=== PATIENT | female | born 1955 | race Caucasian/White ===

== ENCOUNTER 2018-08-12 08:54 | Day surgery (SDC) | payer OTHER ==
[~2018-08-12 08:54] MED LIST: FENTANYL CITR 100 MCG/2 ML ONE; LIDOCAINE 2% MPF 5 ML VIAL ONE; MIDAZOLAM HCL 2 MG/2 ML INJ ONE; ONDANSETRON 4 MG/2 ML VIAL ONE; PROPOFOL 200 MG/20 ML VIAL IV ONE
--- OUTSIDE RECORDS SUMMARY | 2018-08-12 08:56 | XMS REPORT | Clinical Summary ---
:1955 Author Organization [facility] Address [address] [place] [id number] Care Team Providers Name Role Phone Asked, No Pcp Primary Care Provider Unavailable Allergies No Known Allergies Medications Medication Sig Dispensed Refills Start Date End Date Status FLUoxetine (PROzac) 40 Take 40 mg by 0 Active MG capsule mouth daily. aspirin 325 MG tablet Take 325 mg by 0 Active mouth daily. fluorometholone (FML) Administer 1 drop 0 Active 0.1 % ophthalmic into the left eye suspension daily. sodium chloride (HECTOR Administer 1 drop 0 Active 128) 5 % ophthalmic to the right eye solution daily. HYDROcodone-acetaminoph Take 1 tablet by 0 Active en (NORCO) 7.5-325 mg mouth 2 (two) per tablet times a day. metoprolol tartrate Take 12.5 mg by 0 Active (LOPRESSOR) 25 mg mouth 2 (two) tablet times a day. atorvastatin (LIPITOR) Take 40 mg by 0 Active 40 MG tablet mouth daily. lidocaine (LIDODERM) 5 Place 1 patch on 0 Active % the skin daily. Remove & Discard patch within 12 hours or as directed by gabapentin (NEURONTIN) Take 100 mg by 0 Active 100 mg capsule mouth nightly. cholecalciferol, Take 1,000 Units 0 Active vitamin D3, (VITAMIN by mouth daily. D3) 1,000 unit tablet ginkgo biloba 120 mg Take 1 tablet by 0 Active tablet mouth daily. Active Problems Problem Noted Date Chest pain 05/11/2017 Encounters Date Type Specialty Care Team Description 12/23/2017 Transcribe Orders Physical Therapy JOSEPH Mesa (stress urinary incontinence, female) (Primary Dx); MD Lizeth Orgasmic dysfunction after 08/11/2017 Social History Tobacco Use Types Packs/Day Years Used Date Never Smoker Smokeless Tobacco: Never Used Alcohol Use Drinks/Week oz/Week Comments No Sex Assigned at Date Recorded Not on file Job Start Date Occupation Industry Not on file Not on file Not on file Travel History Travel Start Travel End No recent travel history available. Last Filed Vital Signs Not on file Plan of Treatment Health Maintenance Due Date Last Done Comments BREAST CANCER SCREENING 07/10/2005 COLON CANCER SCREENING 07/10/2005 SHINGLES VACCINES (#1) 07/10/2005 INFLUENZA VACCINE 10/08/2018 Results Not on fileafter 08/11/2017 Insurance Payer Benefit Plan / Subscriber ID Effective Dates Phone Address Type Group MEDICARE MEDICARE PART A xxxxxxxxxx 2013-Present [place], [place] Medicare AND B (Home) [place] [address] Advance Directives Patient has advance care planning documents on file. For more information, please contact:Fransico Foley[address] [place] [phone]
[2018-08-12 09:14] LABS: Absolute Lymphocytes (CBC) 2.1 K/uL (0.7-4.9); Absolute Monocytes 0.5 K/uL (0.1-1.3); Absolute Neutrophil 2.5 K/uL (1.8-8.0); Basophils % 0.8 % (0-1.3); Hematocrit 36.7 % (36.0-45.0); Lymphocytes % 39.6 % (15.3-44.8); Monocytes % 8.7 % (3.3-12.3); RBC Red Blood Cell Count 4.11 M/uL (3.86-4.86)
[2018-08-12] MEDS ORDERED: Ringers Lactate 1,000 ML IV ONE (09:17)
[2018-08-12] MEDS ORDERED: LIDOCAINE 2% MPF 5 ML VIAL ONE (09:21)
[2018-08-12] MEDS ORDERED: PROPOFOL 200 MG/20 ML VIAL IV ONE (09:21)
[2018-08-12] MEDS ORDERED: FENTANYL CITR 100 MCG/2 ML ONE (09:21)
[2018-08-12] MEDS ORDERED: MIDAZOLAM HCL 2 MG/2 ML INJ ONE (09:21)
[2018-08-12] MEDS ORDERED: CIPROFLOXACIN 400mg IV 400 MG/200 ML BAG IV ONE (09:43)
--- NOTE | 2018-08-12 09:47 | RAD REPORT ---
EXAM DESCRIPTION: RAD - Chest Pa And Lat (2 Views) - 08/12/2018 8:50 am CLINICAL HISTORY: preop Chest pain. COMPARISON: Chest Pa And Lat (2 Views) dated 01/27/2017 FINDINGS: Mild interstitial pulmonary edema seen. The heart is moderately enlarged in size. No displ aced fractures. IMPRESSION: Mild CHF.
[2018-08-12] MEDS ORDERED: GLYCOPYRROLATE 0.2 MG/ML SYR ONE (10:19)
--- NOTE | 2018-08-12 10:21 | P.BOP ---
Preoperative diagnosis: tender midback, abd wall subQ mass Postoperative diagnosis: same Primary procedure: 1. Excisional biopsy of tender midback subQ mass 5x3cm Secondary procedure: 2. Excisional biopsy of tender abd wall subQ mass 3x3cm Specimen: masses x 2 Anesthesia: General Transferred to: Recovery Room Condition: Good
[2018-08-12] MEDS ORDERED: KETOROLAC 30 MG/ML INJ ONE (10:23)
--- NOTE | 2018-08-12 11:23 | EKG ---
Test Date: 2018-08-12 Test Time: 08:40:51 Delinquency Prevention Social Worker: SABINA MEASUREMENT RESULTS: Intervals: Rate: 58 KS: 184 QRSD: 106 QT: 444 QTc: 435 Shiner: P: 49 KS: 184 QRS: 53 T: 37 INTERPRETIVE STATEMENTS: Sinus bradycardia Otherwise normal ECG Compared to ECG 09/20/2004 03:18:00 No significant changes Electronically Signed On 08-12-18 11:22:45 CDT by Rajesh Stanley
--- NOTE | 2018-08-13 04:02 | OP ---
Date of Procedure: 08/12/2018 Surgeon: Bright Dave MD Preoperative Diagnoses: Tender mid back and abdominal wall subcutaneous masses. Postoperative Diagnoses: Tender mid back and abdominal wall subcutaneous masses. Procedures: 1.Excisional biopsy of tender mid back subcutaneous mass, 5 x 3 cm. 2.Excisional biopsy of tender abdominal wall subcutaneous mass, 3 x 3 cm. Specimens: Two masses. Anesthesia: General plus local. Indication: This is the case of a female who comes to us with 2 areas of tenderness, 2 of them happe n to have a mass in their region. The benefits, alternatives, and risks of excision were fully expla ined which include but are not limited to infection, bleeding, damage to adjacent structures, anesthe cody complication, recurrence, SD, and even . She also understands this may not relieve the symp toms. She might need more than one surgical intervention. She understood, signed the consent. The areas of concern were marked by me on the patient in the holding room. Description Of Procedure: The patient was brought to the operating room, placed in supine position. Anesthesia was done without complication. Then, the patient was placed in lateral decubitus positio n with proper protection. The back and the abdominal area were prepped and draped in sterile fashion . We proceeded to go to the abdomen first. The area received an incision, the incision was carried down to deep subcutaneous tissue. The mass was found, and with the help of blunt dissection, we were able to dissect this mass from the rest of the subcutaneous tissue, removed the mass, obtained hemos tasis, and then this was closed in layers. Deep layers of 3-0 chromic, and then more superficial lay ers subcu 3-0 chromic with Steri-Strip on top. Sponge counts and instrument counts were correct. At that moment, we went to the mid back area. The area was re-prepped and draped so we made an incisio n over the area. Incision was carried down to deep subcutaneous tissue. We found the lump in that r egion. The mass was removed with the help of blunt dissection. The area was irrigated. Hemostasis obtained. This was closed once again in layers with 3-0 chromic and a Steri-Strip on top. Sponge co unt and instrument counts were correct. Local anesthesia was applied before closure. Hemostasis was obtained before closure. The patient was sent to recovery in stable condition. HM/MODL Voice ID: [id number] Report ID: [id number]
--- NOTE | 2018-08-13 04:02 | DS ---
Date of Discharge: 08/12/2018 Diagnoses: Mid back and abdominal wall subcutaneous masses. Procedure: Excisional biopsy of mid back and abdominal wall subcutaneous masses. Disposition: Home. Activity: As tolerated. . No heavy lifting. Followup: Follow up in my office 1 week. Call for appointment [phone]. Keep area dry for 48 hours , then may shower. Keep Steri-Strips intact. Medications: See orders. ALTAF/YAMLI Voice ID: [id number] Report ID: [id number]
== END 2018-08-12 12:25 | disposition home or self-care (01) ==
LOC: OR 08:54
PROVIDERS: ATTEND Surgery
PROC: 0JB80ZZ Excision of Abdomen Subcutaneous Tissue and Fascia, Open Approach (ICD-10-PCS; principal; 2018-08-12 09:00)
PROC: 0JB70ZZ Excision of Back Subcutaneous Tissue and Fascia, Open Approach (ICD-10-PCS; 2018-08-12 09:00)
DX: D17.1 Benign lipomatous neoplasm of skin and subcutaneous tissue of trunk (principal)
CPT/HCPCS: 11403; 11406; 12034; 93005; 85025; 80048; 36415; 88304; 71046; J2704; J2250; J3010; J0744; 88305; J2405

== ENCOUNTER 2019-03-29 18:41 | Emergency (ER) | payer OTHER ==
--- OUTSIDE RECORDS SUMMARY | 2019-03-29 18:44 | XMS REPORT ---
:1955 [facility] Address [address] [place] [address] Dr. Bonds. [address] [place] [address] Care Team Providers Name Role Phone Unavailable Unavailable Unavailable Problems This patient has no known problems. Allergies, Adverse Reactions, Alerts This patient has no known allergies or adverse reactions. Medications This patient has no known medications.
--- NOTE | 2019-03-29 19:39 | RAD REPORT ---
EXAM DESCRIPTION: RAD - Wrist Right 3 View - 03/29/2019 7:31 pm CLINICAL HISTORY: Right wrist pain status post injury FINDINGS: Intraarticular mildly to moderately displaced fracture involves the distal radius. No dislocation
--- NOTE | 2019-03-29 19:40 | RAD REPORT ---
EXAM DESCRIPTION: RAD - Hand Right 3 View - 03/29/2019 7:30 pm CLINICAL HISTORY: Right hand pain status post injury FINDINGS: Intraarticular mildly to moderately displaced fracture involves the distal radius. No dislocation
--- NOTE | 2019-03-29 20:00 | EDPHYS ---
[facility] Name: Ashley Rivera Age: 63 yrs Sex: Female : 1955 Arrival Date: 03/29/2019 Time: 18:44 Bed 24 Private MD: ED Physician Neema Erazo HPI: 03/29 19:08 This 63 yrs old Female presents to ER via Ambulatory with complaints of Fall ma2 Injury, Arm Injury. 19:08 Details of fall: The patient fell from a supine position. Onset: The symptoms/episode ma2 began/occurred suddenly, 1 day(s) ago. Associated injuries: The patient sustained right arm, decreased range of motion. Severity of symptoms: At their worst the symptoms were moderate, in the emergency department the symptoms are unchanged. The patient has not experienced similar symptoms in the past. Historical: - Allergies: 18:52 No Known Allergies; mg2 - Home Meds: 18:52 Aspirin Oral [Active]; cholesterol med [Active]; mg2 - PMHx: 18:52 GERD; Hyperlipidemia; mg2 - PSHx: 18:52 back sx; mg2 - Immunization history: Last tetanus immunization: unknown. - Social history:: Patient/guardian denies using alcohol, street drugs, The patient lives with family, Smoking status: Patient/guardian denies using alcohol, street drugs, tobacco products. - Family history:: not pertinent. - Ebola Screening: : No symptoms or risks identified at this time. ROS: 19:08 Constitutional: Negative for fever, chills, and weight loss. ma2 19:08 All other systems are negative. Exam: 19:08 Constitutional: This is a well developed, well nourished patient who is awake, alert, ma2 and in no acute distress. Chest/axilla: Normal chest wall appearance and motion. Nontender with no deformity. No lesions are appreciated. Cardiovascular: Regular rate and rhythm with a normal S1 and S2. No gallops, murmurs, or rubs. Normal PMI, no JVD. No pulse deficits. Respiratory: Lungs have equal breath sounds bilaterally, clear to auscultation and percussion. No rales, rhonchi or wheezes noted. No increased work of breathing, no retractions or nasal flaring. Abdomen/GI: Soft, non-tender, with normal bowel sounds. No distension or tympany. No guarding or rebound. No evidence of tenderness throughout. Skin: Warm, dry with normal turgor. Normal color with no rashes, no lesions, and no evidence of cellulitis. MS/ Extremity: right hand pain and wrist ttp, mild swelling, otherwise Pulses equal, no cyanosis. Neurovascular intact. Full, normal range of motion. Neuro: Awake and alert, GCS 15, oriented to person, place, time, and situation. Cranial nerves II-XII grossly intact. Motor strength 5/5 in all extremities. Sensory grossly intact. Cerebellar exam normal. Normal gait. Vital Signs: 18:52 BP 129 / 64; Pulse 67; Resp 18; Temp 98.3; Pulse Ox 100% on R/A; Weight 97.52 kg; mg2 Height 5 ft. 7 in. (170.18 cm); 19:07 BP 142 / 68; Pulse 88; Resp 18; Temp 98.2; Pulse Ox 100% ; Pain 8/10; jv1 20:23 BP 124 / 84; Pulse 65; Resp 18; Temp 98.3; Pulse Ox 98% on R/A; Pain 0/10; jv1 18:52 Body Mass Index 33.67 (97.52 kg, 170.18 cm) mg2 Nenana Coma Score: 18:52 Eye Response: spontaneous(4). Verbal Response: oriented(5). Motor Response: obeys mg2 commands(6). Total: 15. Trauma Score (Adult): 18:52 Eye Response: spontaneous(1); Verbal Response: oriented(1); Motor Response: obeys mg2 commands(2); Systolic BP: > 89 mm Hg(4); Respiratory Rate: 10 to 29 per min(4); Nenana Score: 15; Trauma Score: 12 Procedures: 20:44 Splinting: Splint applied to right arm using sling, applied by myself. nurse. post ma2 reduction film - Examined by me, post splint application: neurovascular intact, 2+ distal pulses palpable, brisk capillary refill noted, Patient tolerated well. MDM: 19:02 Patient medically screened. ma2 19:08 Differential diagnosis: contusion, fracture, sprain, strain. Data reviewed: vital ma2 signs, nurses notes. Counseling: I had a detailed discussion with the patient and/or guardian regarding: the historical points, exam findings, and any diagnostic results supporting the discharge/admit diagnosis, the presence of at least one elevated blood pressure reading (>120/80) during this emergency department visit, the need for outpatient follow up. Response to treatment: the patient's symptoms have markedly improved after treatment. 03/29 19:05 Order name: Hand Right 3 View XRAY; Complete Time: 19:58 ma2 03/29 19:05 Order name: Wrist Right 3 View XRAY; Complete Time: 19:58 ma2 03/29 19:59 Order name: Splint: sugar tongue; Complete Time: 20:33 ma2 03/29 19:59 Order name: Sling; Complete Time: 20:33 ma2 Administered Medications: No medications were administered Disposition: 03/29/19 19:59 Discharged to Home. Impression: Colles' fracture of right radius. - Condition is Stable. - Discharge Instructions: Colles Fracture. - Prescriptions for Tylenol- Codeine #3 300-30 mg Oral Tablet - take 2 tablet by ORAL route every 6 hours As needed; 30 tablet. - Work release form, Medication Reconciliation Form, Thank You Letter, Antibiotic Education, Prescription Opioid Use form. - Follow up: Armen Dubois MD; When: Tomorrow; Reason: Continuance of care. Signatures: Dispatcher [employer] EDMS Neema Erazo MD MD ma2 Jaime May, RN RN mg2 Evelyn Montana RN RN jv1 Corrections: (The following items were deleted from the chart) 20:52 19:59 03/29/2019 19:59 Discharged to Home. Impression: Colles' fracture of right jv1 radius. Condition is Stable. Forms are Medication Reconciliation Form, Thank You Letter, Antibiotic Education, Prescription Opioid Use. Follow up: Dr. Armen Dubois; When: Tomorrow; Reason: Continuance of care. ma2
--- NOTE | 2019-03-29 20:00 | ER ---
Nurse's Notes [facility] Name: Ashley Rivera Age: 63 yrs Sex: Female : 1955 Arrival Date: 03/29/2019 Time: 18:44 Bed 24 Private MD: Diagnosis: Colles' fracture of right radius Presentation: 03/29 18:48 Presenting complaint: Patient states: i was walking in a driveway holding a box when i mg2 fell landed on my right side. Care prior to arrival: None. Mechanism of Injury: Fall from standing position. Trauma event details: Injury occurred in the [facility], Injury occurred at: 18:00. 18:48 Acuity: ROLANDA 4 mg2 18:48 Method Of Arrival: Ambulatory mg2 19:10 Transition of care: patient was not received from another setting of care. Onset of jv1 symptoms was March 29, 2019. Risk Assessment: Do you want to hurt yourself or someone else? Patient reports no desire to harm self or others. Initial Sepsis Screen: Does the patient meet any 2 criteria? No. Patient's initial sepsis screen is negative. Does the patient have a suspected source of infection? No. Patient's initial sepsis screen is negative. Trauma Activation: Not Applicable Physician: ED Physician; Name: ; Notified At: ; Arrived At: Physician: General Surgeon; Name: ; Notified At: ; Arrived At: Physician: Radiology; Name: ; Notified At: ; Arrived At: Physician: Respiratory; Name: ; Notified At: ; Arrived At: Physician: Lab; Name: ; Notified At: ; Arrived At: Historical: - Allergies: 18:52 No Known Allergies; mg2 - Home Meds: 18:52 Aspirin Oral [Active]; cholesterol med [Active]; mg2 - PMHx: 18:52 GERD; Hyperlipidemia; mg2 - PSHx: 18:52 back sx; mg2 - Immunization history: Last tetanus immunization: unknown. - Social history:: Patient/guardian denies using alcohol, street drugs, The patient lives with family, Smoking status: Patient/guardian denies using alcohol, street drugs, tobacco products. - Family history:: not pertinent. - Ebola Screening: : No symptoms or risks identified at this time. Screenin:07 Abuse screen: Denies threats or abuse. Nutritional screening: No deficits noted. jv1 Tuberculosis screening: No symptoms or risk factors identified. Fall Risk Fall in past 12 months (25 points). Primary Survey: 19:08 NO uncontrolled hemorrhage observed. A: Airway: patent. Breathing/Chest: Respiratory jv1 pattern: regular. Circulation: Cardiac rhythm: sinus rhythm. Disability Alert. 19:54 Exposure/Environment: There is no evidence of uncontrolled external bleeding. Obvious jv1 injury(ies) are noted at this time: right hand. Reassessment Breathing/Chest Respiratory pattern Regular Respiratory effort Spontaneous Unlabored Breath sounds Clear Chest inspection Symmetrical. Assessment: 18:53 General: Appears in no apparent distress. comfortable, Behavior is calm, cooperative. mg2 19:13 General: Appears in no apparent distress. uncomfortable, well groomed. Pain:. jv1 19:47 General: Appears in no apparent distress. comfortable, Behavior is calm, cooperative. jv1 Pain: Complains of pain in right arm Pain does not radiate. Pain currently is 8 out of 10 on a pain scale. Quality of pain is described as aching. Neuro: Level of Consciousness is awake, alert, obeys commands, Oriented to person, place, time, situation, Clerical Proofreader are weak on right Moves all extremities. Cardiovascular: Denies chest pain. Respiratory: Airway is patent Respiratory effort is even, unlabored, Respiratory pattern is regular, symmetrical, Breath sounds are clear bilaterally. GI: Abdomen is round non-distended, Bowel sounds present X 4 quads. : No signs and/or symptoms were reported regarding the genitourinary system. EENT: No signs and/or symptoms were reported regarding the EENT system. Derm: Skin is intact, is healthy with good turgor. Musculoskeletal: Capillary refill < 3 seconds, Range of motion: limited in right arm. Injury Description: fall. 20:05 Reassessment: for discharge after splinting. jv1 20:24 Reassessment: Patient appears in no apparent distress at this time. No changes from jv1 previously documented assessment. Patient and/or family updated on plan of care and expected duration. Pain level reassessed. Patient is alert, oriented x 3, equal unlabored respirations, skin warm/dry/pink. Vital Signs: 18:52 BP 129 / 64; Pulse 67; Resp 18; Temp 98.3; Pulse Ox 100% on R/A; Weight 97.52 kg; mg2 Height 5 ft. 7 in. (170.18 cm); 19:07 BP 142 / 68; Pulse 88; Resp 18; Temp 98.2; Pulse Ox 100% ; Pain 8/10; jv1 20:23 BP 124 / 84; Pulse 65; Resp 18; Temp 98.3; Pulse Ox 98% on R/A; Pain 0/10; jv1 18:52 Body Mass Index 33.67 (97.52 kg, 170.18 cm) mg2 Friendship Coma Score: 18:52 Eye Response: spontaneous(4). Verbal Response: oriented(5). Motor Response: obeys mg2 commands(6). Total: 15. Trauma Score (Adult): 18:52 Eye Response: spontaneous(1); Verbal Response: oriented(1); Motor Response: obeys mg2 commands(2); Systolic BP: > 89 mm Hg(4); Respiratory Rate: 10 to 29 per min(4); Friendship Score: 15; Trauma Score: 12 ED Course: 18:44 Patient arrived in ED. ag5 18:49 Triage completed. mg2 18:53 Patient has correct armband on for positive identification. mg2 18:55 Felicia Colin, VANESSA is Primary Nurse. ls4 19:02 Neema Erazo MD is Attending Physician. ma2 19:29 Hand Right 3 View XRAY In Process Unspecified. EDMS 19:29 Wrist Right 3 View XRAY In Process Unspecified. EDMS 19:55 Arm band placed on left wrist. Patient placed in an exam room, Patient notified of wait jv1 time Patient's private physician notified. 19:56 Patient maintains SpO2 saturation greater than 95% on room air. Thermoregulation: warm jv1 blanket given to patient. 19:59 Armen Dubois MD is Referral Physician. ma2 20:32 Ben wrap to right elbow and right wrist Orthoglass splint: Sugar tong splint applied on jp3 right arm. Sling applied to right arm. 20:49 No provider procedures requiring assistance completed. Patient did not have IV access jv1 during this emergency room visit. Administered Medications: No medications were administered Intake: 20:51 PO: 0ml; IV: 0ml; Tubes: 0ml (); Total: 0ml. jv1 Output: 20:51 Urine: 0ml; Total: 0ml. jv1 Outcome: 19:59 Discharge ordered by . [email or web address] 20:50 Discharged to home ambulatory, with friend, with splint and sling to right arm jv1 20:50 Condition: stable 20:50 Discharge instructions given to patient, friend, Instructed on discharge instructions, follow up and referral plans. medication usage, care for splint Demonstrated understanding of instructions, follow-up care, medications, splint care, Prescriptions given X 1. 20:51 Patient's length of stay was not longer than 2 hours. jv1 20:52 Patient left the ED. jv1 Signatures: Dispatcher [employer] EDMS Neema Erazo MD MD ma2 Jaime May, RN RN mg2 Andrea Chapa jp3 Evelyn Montana RN RN jv1 Felicia Colin RN RN ls4 Mandi Flores 5
[2019-03-29 23:56] VITALS: BP 124/84; TEMP 98.3; O2SAT 98
== END 2019-03-29 20:52 | disposition home or self-care (01) ==
LOC: ER 18:41
PROC: 2W3CX1Z Immobilization of Right Lower Arm using Splint (ICD-10-PCS; principal; 2019-03-29)
DX: S52.531A Colles' fracture of right radius, initial encounter for closed fracture (principal); W19.XXXA Unspecified fall, initial encounter; Y93.9 Activity, unspecified; Y92.9 Unspecified place or not applicable; Z79.82 Long term (current) use of aspirin; E78.5 Hyperlipidemia, unspecified; K21.9 Gastro-esophageal reflux disease without esophagitis
CPT/HCPCS: 99284

== ENCOUNTER 2019-03-30 00:27 | Emergency (ER) | payer OTHER ==
--- OUTSIDE RECORDS SUMMARY | 2019-03-30 00:30 | XMS REPORT ---
:1955 Author Organization [facility] Address [address] [place] [address] Dr. Bonds. [address] [place] [address] Care Team Providers Name Role Phone Unavailable Unavailable Unavailable Problems This patient has no known problems. Allergies, Adverse Reactions, Alerts This patient has no known allergies or adverse reactions. Medications This patient has no known medications.
--- NOTE | 2019-03-30 01:00 | ER ---
Nurse's Notes [facility] Name: Ashley Rivera Age: 63 yrs Sex: Female : 1955 Arrival Date: 03/30/2019 Time: 00:31 Bed 15 Private MD: Roberto Law E Diagnosis: ENCOUNTER FOR ADJUSTMENT OF SPLINT Presentation: 03/30 00:55 Presenting complaint: Patient states: Pt was just discharged this evening after Orthoglass splint placement. Pt came back because cast is itchy and she feels pain in the arm. Transition of care: patient was not received from another setting of care. Onset of symptoms was March 30, 2019. Risk Assessment: Do you want to hurt yourself or someone else? Patient reports no desire to harm self or others. Initial Sepsis Screen: Does the patient meet any 2 criteria? No. Patient's initial sepsis screen is negative. Does the patient have a suspected source of infection? No. Patient's initial sepsis screen is negative. Care prior to arrival: None. 00:55 Method Of Arrival: Ambulatory 00:55 Acuity: ROLANDA 4 Historical: - Allergies: 00:58 No Known Allergies; - Home Meds: 00:58 Aspirin Oral [Active]; cholesterol med [Active]; - PMHx: 00:58 GERD; Hyperlipidemia; - Immunization history:: Adult Immunizations. - Social history:: Smoking status: Patient/guardian denies using. - Ebola Screening: : Patient negative for fever greater than or equal to 101.5 degrees Fahrenheit, and additional compatible Ebola Virus Disease symptoms Patient denies exposure to infectious person. Screenin:01 Abuse screen: Denies threats or abuse. Denies injuries from another. Nutritional screening: No deficits noted. Tuberculosis screening: No symptoms or risk factors identified. Fall Risk None identified. Assessment: 00:59 General: Appears in no apparent distress. Behavior is calm, cooperative, appropriate for age. Pain: Complains of pain in right arm Pain does not radiate. Pain currently is 3 out of 10 on a pain scale. Pain began 2 hours ago. Neuro: Level of Consciousness is awake, alert, obeys commands, Oriented to person, place, time, situation, Appropriate for age. Cardiovascular: Capillary refill < 3 seconds. Respiratory: Airway is patent Respiratory effort is even, unlabored, Respiratory pattern is regular, symmetrical. GI: Abdomen is flat, non-distended. : No signs and/or symptoms were reported regarding the genitourinary system. EENT: No signs and/or symptoms were reported regarding the EENT system. Derm: Skin is intact, is healthy with good turgor, Skin is pink, warm \T\ dry. normal. Musculoskeletal: Circulation, motion, and sensation intact. Vital Signs: 01:06 BP 109 / 72; Pulse 67; Resp 18; Temp 98.2; Pulse Ox 99% on R/A; wh ED Course: 00:31 Patient arrived in ED. es 00:32 Roberto Law MD is Private Physician. es 00:44 Jaclyn Vance FNP-C is [facility]. snw 00:44 Sheldon Marsh MD is Attending Physician. snw 00:47 Gabe Whitehead is Primary Nurse. wh 00:57 Triage completed. 01:01 Arm band placed on left wrist. 01:01 Patient has correct armband on for positive identification. Bed in low position. Call light in reach. Side rails up X 1. Pulse ox on. NIBP on. 01:06 No provider procedures requiring assistance completed. Patient did not have IV access during this emergency room visit. Administered Medications: No medications were administered Outcome: 00:59 Discharge ordered by . snw 01:07 Discharged to home ambulatory, with family. 01:07 Condition: stable 01:07 Discharge instructions given to patient, family, Instructed on discharge instructions, follow up and referral plans. POC Demonstrated understanding of instructions, follow-up care, splint care, POC 01:07 Patient left the ED. Signatures: Jaclyn Vance FNP-C STONEWORKING SANDER-Julita Dalton Winsy
--- NOTE | 2019-03-30 01:00 | EDPHYS ---
Physician Documentation [facility] Name: Ashley Rivera Age: 63 yrs Sex: Female : 1955 Arrival Date: 03/30/2019 Time: 00:31 Bed 15 Private MD: Roberto Law E ED Physician Sheldon Marsh HPI: 03/30 01:05 This 63 yrs old Female presents to ER via Ambulatory with complaints of Cast snw hurting, arm swelling,itching. 01:05 The patient or guardian complains of pain, that is acute, swelling. The complaints snw affect the palmar aspect of right forearm. Context: resulted from. Historical: - Allergies: 00:58 No Known Allergies; wh - Home Meds: 00:58 Aspirin Oral [Active]; cholesterol med [Active]; wh - PMHx: 00:58 GERD; Hyperlipidemia; wh - Immunization history:: Adult Immunizations. - Social history:: Smoking status: Patient/guardian denies using. - Ebola Screening: : Patient negative for fever greater than or equal to 101.5 degrees Fahrenheit, and additional compatible Ebola Virus Disease symptoms Patient denies exposure to infectious person. ROS: 01:04 Constitutional: Negative for fever, chills, and weight loss, Eyes: Negative for injury, snw pain, redness, and discharge, ENT: Negative for injury, pain, and discharge, Neck: Negative for injury, pain, and swelling, Cardiovascular: Negative for chest pain, palpitations, and edema, Respiratory: Negative for shortness of breath, cough, wheezing, and pleuritic chest pain, Abdomen/GI: Negative for abdominal pain, nausea, vomiting, diarrhea, and constipation, Back: Negative for injury and pain, : Negative for injury, bleeding, discharge, and swelling, Skin: Negative for injury, rash, and discoloration, Neuro: Negative for headache, weakness, numbness, tingling, and seizure, Psych: Negative for depression, anxiety, suicide ideation, homicidal ideation, and hallucinations. 01:04 MS/extremity: Positive for pt states splint is driving her crazy, the material is itching and the splint felt too tight with digging in at some places. Exam: 01:00 Constitutional: This is a well developed, well nourished patient who is awake, alert, snw and in no acute distress. Head/Face: Normocephalic, atraumatic. Eyes: Pupils equal round and reactive to light, extra-ocular motions intact. Lids and lashes normal. Conjunctiva and sclera are non-icteric and not injected. Cornea within normal limits. Periorbital areas with no swelling, redness, or edema. ENT: Nares patent. No nasal discharge, no septal abnormalities noted. Tympanic membranes are normal and external auditory canals are clear. Oropharynx with no redness, swelling, or masses, exudates, or evidence of obstruction, uvula midline. Mucous membranes moist. Neck: Trachea midline, no thyromegaly or masses palpated, and no cervical lymphadenopathy. Supple, full range of motion without nuchal rigidity, or vertebral point tenderness. No Meningismus. Chest/axilla: Normal chest wall appearance and motion. Nontender with no deformity. No lesions are appreciated. Cardiovascular: Regular rate and rhythm with a normal S1 and S2. No gallops, murmurs, or rubs. Normal PMI, no JVD. No pulse deficits. Respiratory: Lungs have equal breath sounds bilaterally, clear to auscultation and percussion. No rales, rhonchi or wheezes noted. No increased work of breathing, no retractions or nasal flaring. Abdomen/GI: Soft, non-tender, with normal bowel sounds. No distension or tympany. No guarding or rebound. No evidence of tenderness throughout. Back: No spinal tenderness. No costovertebral tenderness. Full range of motion. Skin: Warm, dry with normal turgor. Normal color with no rashes, no lesions, and no evidence of cellulitis. Neuro: Awake and alert, GCS 15, oriented to person, place, time, and situation. Cranial nerves II-XII grossly intact. Motor strength 5/5 in all extremities. Sensory grossly intact. Cerebellar exam normal. Normal gait. Psych: Awake, alert, with orientation to person, place and time. Behavior, mood, and affect are within normal limits. 01:00 Musculoskeletal/extremity: Extremities: grossly normal except: noted in the right arm: splint placed earlier today with discomfort, splint material with itching. Splint loosened in ED, arm placed in stockingette and padded with webril and splint reapplied, Circulation is intact in all extremities. Sensation intact. Compartment Syndrome exam of affected extremity: is normal. Vital Signs: 01:06 BP 109 / 72; Pulse 67; Resp 18; Temp 98.2; Pulse Ox 99% on R/A; wh MDM: 00:46 Patient medically screened. snw 01:03 Data reviewed: vital signs, nurses notes. Data interpreted: Pulse oximetry: on room air snw is 99 %. Interpretation: normal. Counseling: I had a detailed discussion with the patient and/or guardian regarding: the historical points, exam findings, and any diagnostic results supporting the discharge/admit diagnosis, the need for outpatient follow up, to return to the emergency department if symptoms worsen or persist or if there are any questions or concerns that arise at home. Special discussion: Based on the history and exam findings, there is no indication for further emergent testing or inpatient evaluation. I discussed with the patient/guardian the need to see the orthopedic surgeon for further evaluation of the symptoms. I discussed with the patient/guardian the need to see the primary care provider for further evaluation of the symptoms. Administered Medications: No medications were administered Disposition: 07:53 Co-signature as Attending Physician, Sheldon Marsh MD I agree with the assessment and [facility] plan of care. Disposition: 03/30/19 00:59 Discharged to Home. Impression: ENCOUNTER FOR ADJUSTMENT OF SPLINT. - Condition is Stable. - Discharge Instructions: Cast or Splint Care, Adult, RICE for Routine Care of Injuries. - Medication Reconciliation Form, Thank You Letter, Antibiotic Education, Prescription Opioid Use form. - Follow up: Emergency Department; When: As needed; Reason: Worsening of condition. Follow up: Private Physician; When: 2 - 3 days; Reason: Recheck today's complaints, Continuance of care. Signatures: Sheldon Marsh MD MD cha Therrien, Shelly, COPY ROOM TECHNICIAN-C COPY ROOM TECHNICIAN-Amaraw Gabe Whitehead Corrections: (The following items were deleted from the chart) 01:07 00:59 03/30/2019 00:59 Discharged to Home. Impression: ENCOUNTER FOR ADJUSTMENT OF wh SPLINT. Condition is Stable. Forms are Medication Reconciliation Form, Thank You Letter, Antibiotic Education, Prescription Opioid Use. Follow up: Emergency Department; When: As needed; Reason: Worsening of condition. Follow up: Private Physician; When: 2 - 3 days; Reason: Recheck today's complaints, Continuance of care. snw
[2019-03-30 07:00] VITALS: BP 109/72; TEMP 98.2; O2SAT 99
== END 2019-03-30 01:07 | disposition home or self-care (01) ==
LOC: ER 00:27
DX: M79.631 Pain in right forearm (principal); Z46.89 Encounter for fitting and adjustment of other specified devices
CPT/HCPCS: 99283

== ENCOUNTER 2019-04-02 10:07 | Day surgery (SDC) | payer OTHER ==
[2019-03-31 13:39] LABS: Absolute Lymphocytes (CBC) 2.3 K/uL (0.7-4.9); Basophils % 0.5 % (0-1.3); Lymphocytes % 37.5 % (15.3-44.8); MPV 8.6 fL (7.6-11.3); RBC Red Blood Cell Count 4.36 M/uL (3.86-4.86)
[2019-03-31 13:52] LABS: Potassium 4.9 mmol/L (3.5-5.1)
--- NOTE | 2019-03-31 15:26 | EKG ---
Test Date: 2019-03-31 Test Time: 13:26:04 Metal Precision Machine Assembler: JAVIER MEASUREMENT RESULTS: Intervals: Rate: 60 CA: 188 QRSD: 102 QT: 416 QTc: 416 [place]: P: 47 CA: 188 QRS: 38 T: 19 INTERPRETIVE STATEMENTS: Normal sinus rhythm Normal ECG Compared to ECG 08/12/2018 08:40:51 Sinus bradycardia no longer present Electronically Signed On 03-31-19 15:25:23 PERIODICALS CLERK by Rajesh Stanley
--- OUTSIDE RECORDS SUMMARY | 2019-04-02 10:10 | XMS REPORT ---
:1955 [facility] Address [address] [place] [address] Dr. Bonds. [address] [place] [id number] Care Team Providers Name Role Phone Unavailable Unavailable Unavailable Problems This patient has no known problems. Allergies, Adverse Reactions, Alerts This patient has no known allergies or adverse reactions. Medications This patient has no known medications.
[2019-04-02] MEDS ORDERED: Ringers Lactate 1,000 ML IV ONE (10:30)
[2019-04-02] MEDS ORDERED: CEFAZOLIN/SWI 1gm 1 GM/10 ML SYR ONE (10:44)
[2019-04-02] MEDS ORDERED: FENTANYL CITR 100 MCG/2 ML ONE (11:30)
[2019-04-02] MEDS ORDERED: propofoL 200 MG/20 ML VIAL IV ONE (11:30)
[2019-04-02] MEDS ORDERED: LIDOCAINE 2% MPF 5 ML VIAL ONE (11:30)
[2019-04-02] MEDS ORDERED: MIDAZOLAM HCL 2 MG/2 ML INJ ONE (11:30)
[2019-04-02] MEDS ORDERED: ONDANSETRON 4 MG/2 ML VIAL ONE (12:22)
[2019-04-02] MEDS ORDERED: KETOROLAC 30 MG/ML INJ ONE (12:22)
[2019-04-02] MEDS ORDERED: dexAMETHasone 10 MG/ML VIAL ONE ×2 (12:22→12:44)
[2019-04-02] MEDS ORDERED: ROPLVACAINE HCL 40 ML ONE (12:48)
--- NOTE | 2019-04-02 13:13 | P.BOP ---
Preoperative diagnosis: right displacd intraarticular distal radius fx Postoperative diagnosis: same Primary procedure: ORIF 3 part distal radius fracture Estimated blood loss: 10cc Anesthesia: General Transferred to: Recovery Room Condition: Good
[2019-04-02] MEDS ORDERED: HYDROMORPHONE HCL 1 MG/ML INJ ONE (13:50)
--- NOTE | 2019-04-02 15:08 | RAD REPORT ---
EXAM DESCRIPTION: RAD - Wrist Right 2 View - 04/02/2019 2:53 pm FINDINGS: There were 19 portable C-arm views obtained during fluoroscopic assisted intraoperative fr acture fixation hardware placement. Images show stepwise placement of the hardware. No suspicious or unexpected finding. Fluoro time was 3.9 minutes. Cumulative dose 2.91 mGy.
[2019-04-02 15:58] VITALS: BP 84/43; TEMP 97; O2SAT 95
--- NOTE | 2019-04-02 19:23 | OP ---
Date of Procedure: 04/02/2019 Surgeon: Mahendra Medina MD Preoperative Diagnosis: Right comminuted intra-articular fracture of the distal radius. Postoperative Diagnosis: Right comminuted intra-articular fracture of the distal radius with 3 intra -articular components. Procedure: Open reduction and internal fixation of distal radius fracture with fixation of 3 intra-a rticular fragments using the Acumed 2 volar plating system. Estimated Blood Loss: 10 cc. Complications: No complications Specimens: No pathology specimens sent. Indications For Operation: Ms. Rivera is a 63-year-old patient who unfortunately fell on Friday, i njuring her right upper extremity. She was seen and examined and in the emergency room, she was plac ed in a sugar-tong splint. She can be seen in my office shortly thereafter. On initial examination, she had some complaints of numbness in her thumb, but no numbness in her index and long finger. Her splint was loosened as well as altered to avoid pressure and seeing her this morning, she says she h as absolutely full sensation all of her fingers including the thumb. Therefore, we will not proceed with carpal tunnel release. All risks, benefits, and alternatives to open reduction and internal fix ation are again discussed with the patient. She states she understands things as presented and wishe s to proceed. Description Of Procedure: The patient was taken to the operating room and placed in supine position. General anesthesia was obtained by staff. Following this, well-padded tourniquet placed on superio r right arm. Right upper extremity was then prepped and draped in the usual fashion. Standard volar approach of Bright was then taken down carefully through skin only with a zigzag across the volar wri st crease. Meticulous hemostasis being maintained using bipolar electrocautery. This leads down to the tendon of the flexor carpi radialis, which was then exposed. It was then gently moved radialward and the underlying sheath was then exploited. The tendon and muscle belly of the flexor pollicis lo ngus was then moved ulnarward to protect the median nerve. The pronator quadratus was then divided i n its mid substance and gently lifted off the volar surface of the radius using a wooden handle eleva tor. This allowed access to the fracture. The fracture itself was actually quite unusual. It was a n intra-articular fracture with a fairly significant volar component as well as more or less complete ly free radial styloid. The radial styloid was not very well controlled even using pressure and dire ct reduction techniques. Therefore, decision was made to supplement this with a radial styloid pin w hich was placed within the fragment. Combination of Evelyn taking with a radial styloid pin as well a s manual techniques produced a highly improved position of the radial styloid. This was held in plac e while the plate was applied. The plate was used to actually significantly as a buttress which allo ws for reduction of the articular surface. Under biplanar C-arm radiography, it appeared that the di stal radius looked actually quite good. Therefore, the toggle screws placed as well as the distal pe gs. After this, the pin was removed and the remaining 2 screws were then placed in the proximal aspe ct. The patient was then placed extremely well-padded sterile dressing as well as a sugar-tong splin t, awakened, and taken to recovery room in good condition. There were no complications. /YAMIL Voice ID: [id number] Report ID: [id number]
== END 2019-04-02 15:30 | disposition home or self-care (01) ==
LOC: OR 10:07
PROVIDERS: ATTEND Orthopaedic Surgery
PROC: 0PSH04Z Reposition Right Radius with Internal Fixation Device, Open Approach (ICD-10-PCS; principal; 2019-04-02 11:00)
DX: S52.571A Other intraarticular fracture of lower end of right radius, initial encounter for closed fracture (principal); G47.30 Sleep apnea, unspecified; I10 Essential (primary) hypertension; J44.9 Chronic obstructive pulmonary disease, unspecified; K21.9 Gastro-esophageal reflux disease without esophagitis; Z87.891 Personal history of nicotine dependence
CPT/HCPCS: 93005; 85025; 80048; 36415; 73100; 25609; J2704; J2250; J3010; J1100 ×2; J2795; J1170; J0690; J7120; J2405